=== PATIENT | male | born 1985 | race Caucasian/White ===

== ENCOUNTER 2017-02-20 14:03 | Emergency (ER) | payer MEDICAID, OTHER ==
[~2017-02-20] VITALS: Ht 180.3 cm; Wt 75.7 kg
[~2017-02-20 14:03] MED LIST: /LAMO10TA PO; GABA-282 PO; LAMI25TA PO; OMEP40CA2 PO; ZOLO50TA PO
[2017-02-20 14:04] VITALS: BP 136/80
[2017-02-20] MEDS ORDERED: METH27TA (14:09)
--- NOTE | 2017-02-20 15:20 | REP ---
RIGHT HAND, FOUR VIEWS: HISTORY: Trauma. There is no acute fracture or dislocation. The joint spaces are normal in appearance. IMPRESSION: Three is no acute fracture or dislocation. Signed by Kavon Prince MD 02/20/2017 03:27 P
--- NOTE | 2017-02-20 15:42 | REP ---
RIGHT WRIST: 02/20/2017. Comparison: Right hand today and 07/06/2016. Clinical history: Trauma. Findings: Distal radius and ulna without fracture or focal lesion. Carpal bones and joint spaces preserved without fracture, subluxation or other focal abnormality. Metacarpals and their articulations with the wrist were also normal. There is soft tissue swelling over the dorsal aspect of the hand and wrist. Impression: 1. Diffuse soft tissue swelling over the dorsal hand and wrist, but without visible or displaced fracture, definite avulsion or other acute finding. Signed by Brandon Santizo MD 02/20/2017 06:36 P
== END 2017-02-20 15:31 | disposition home or self-care (01) ==
LOC: M ED 14:03
DX: S60.221A Contusion of right hand, initial encounter (principal); W22.8XXA Striking against or struck by other objects, initial encounter; Y92.018 Other place in single-family (private) house as the place of occurrence of the external cause; Y99.9 Unspecified external cause status; Y93.9 Activity, unspecified; Z88.8 Allergy status to other drugs, medicaments and biological substances; Z91.040 Latex allergy status

== ENCOUNTER 2017-05-05 13:01 | Emergency (ER) | payer OTHER ==
[~2017-05-05] VITALS: Ht 182.9 cm; Wt 73.4 kg
[~2017-05-05 13:01] MED LIST changes: +METH27TA
[2017-05-05 13:02] VITALS: BP 152/84
[2017-05-05] MEDS ORDERED: CORT1SOL3 OT (13:56)
== END 2017-05-05 14:15 | disposition home or self-care (01) ==
LOC: M ED 13:01
DX: H60.92 Unspecified otitis externa, left ear (principal); H61.22 Impacted cerumen, left ear; H92.02 Otalgia, left ear; F41.9 Anxiety disorder, unspecified; F32.9 Major depressive disorder, single episode, unspecified; Z91.040 Latex allergy status; Z88.8 Allergy status to other drugs, medicaments and biological substances

== ENCOUNTER 2017-07-31 14:29 | Inpatient (IN) | payer OTHER ==
[2017-07-31 16:24] LABS: HEMATOCRIT 45.8 % (42.0-52.0); HEMOGLOBIN 15.7 g/dl (14.0-18.0); MEAN CORPUSCULAR HEMOGLOBIN 30.2 pg (27.0-33.0); MEAN CORPUSCULAR HGB CONC 34.3 g/dl (32.0-36.5); MEAN CORPUSCULAR VOLUME 88.1 fl (80.0-96.0); PLATELET COUNT, AUTOMATED 188 10^3/uL (150-450); RED CELL DISTRIBUTION WIDTH 13.2 % (11.5-14.5); WHITE BLOOD COUNT 6.3 10^3/uL (4.0-10.0)
[2017-07-31 16:48] LABS: AMPHETAMINES LEVEL URINE NEGATIVE (NEGATIVE); BARBITURATES URINE NEGATIVE (NEGATIVE); BENZODIAZEPINES URINE NEGATIVE (NEGATIVE); CANNABINOIDS URINE POSITIVE (NEGATIVE); COCAINE METABOLITE URINE NEGATIVE (NEGATIVE); METHADONE URINE NEGATIVE (NEGATIVE); OPIATES URINE NEGATIVE (NEGATIVE); PHENCYCLIDINE URINE NEGATIVE (NEGATIVE)
[2017-07-31 16:52] LABS: ALBUMIN 4.5 GM/DL (3.2-5.2); ALBUMIN/GLOBULIN RATIO 1.32 (1.00-1.93); ALKALINE PHOSPHATASE 94 U/L (45-117); ALT/SGPT 53 U/L (12-78); ANION GAP 6 MEQ/L (8-16); AST/SGOT 20 U/L (7-37); BILIRUBIN,DIRECT 0.2 MG/DL (0.0-0.2); BILIRUBIN,TOTAL 0.8 MG/DL (0.2-1.0); BLOOD UREA NITROGEN 10 MG/DL (7-18); CALCIUM LEVEL 9.3 MG/DL (8.5-10.1); CARBON DIOXIDE LEVEL 29 MEQ/L (21-32); CHLORIDE LEVEL 105 MEQ/L (98-107); CREATININE FOR GFR 0.91 MG/DL (0.70-1.30); GLOMERULAR FILTRATION RATE > 60.0 (>60); GLUCOSE, FASTING 88 MG/DL (70-105); POTASSIUM SERUM 4.2 MEQ/L (3.5-5.1); SALICYLATE LEVEL < 1.7 MG/DL (5.0-30.0); SODIUM LEVEL 140 MEQ/L (136-145); THYROID STIMULATING HORMONE 0.468 uIU/ML (0.358-3.740); TOTAL PROTEIN 7.9 GM/DL (6.4-8.2)
[2017-07-31 16:54] LABS: ACETAMINOPHEN LEVEL < 2.0 UG/ML (10.0-30.0); ETHYL ALCOHOL (ETHANOL) < 0.003 % (0.000-0.010)
[2017-07-31] MEDS ORDERED: MOM 30ML SUSPENSION UDC PO (19:30)
[2017-07-31] MEDS ORDERED: traZODone 50 MG TAB PO (19:30)
[2017-07-31] MEDS ORDERED: MAALOX 30 ML SUSP *UDC PO (19:30)
[2017-08-01] MEDS ORDERED: hydrOXYzine 50 MG TAB PO (14:30)
[2017-08-01] MEDS: ACETAMINOPHEN TAB 650MG DOSE (2X325MG) PO (17:32)
[2017-08-01] MEDS: guanFACINE 1 MG TAB PO (21:00)
[2017-08-01] MEDS: QUEtiapine FUMARATE 100 MG TAB PO (21:00)
[2017-08-02] MEDS: QUEtiapine FUMARATE 50 MG TAB PO (08:54)
[2017-08-02] MEDS: busPIRone 5 MG TAB PO ×3 (09:59→21:44)
[2017-08-02] MEDS: guanFACINE 1 MG TAB PO (21:44)
[2017-08-02] MEDS: QUEtiapine FUMARATE 100 MG TAB PO (21:44)
[2017-08-03] MEDS: QUEtiapine FUMARATE 50 MG TAB PO (08:55)
[2017-08-03] MEDS: busPIRone 5 MG TAB PO ×3 (08:55→22:00)
[2017-08-03] MEDS: QUEtiapine FUMARATE 100 MG TAB PO (21:59)
[2017-08-03] MEDS: guanFACINE 1 MG TAB PO (21:59)
[2017-08-04] MEDS: QUEtiapine FUMARATE 50 MG TAB PO (09:21)
[2017-08-04] MEDS: busPIRone 5 MG TAB PO (09:21)
== END 2017-08-04 13:05 | disposition home or self-care (01) | DRG 756 ==
LOC: M ED 14:29 → M ED INP 19:24 → M PSY 22:30
DX: F41.1 Generalized anxiety disorder (principal); R45.851 Suicidal ideations; F12.90 Cannabis use, unspecified, uncomplicated; F43.10 Post-traumatic stress disorder, unspecified; Z91.040 Latex allergy status; Z88.8 Allergy status to other drugs, medicaments and biological substances; M54.5 Low back pain; G47.00 Insomnia, unspecified; G43.909 Migraine, unspecified, not intractable, without status migrainosus

== ENCOUNTER 2018-01-11 14:39 | Emergency (ER) | payer OTHER ==
[2018-01-11] MEDS: IPRATROPIUM 0.5MG/ALBUTEROL 2.5MG INH SOL UD 3ML (DUONEB)(J7620) NEB (15:36)
[2018-01-11 15:44] LABS: BASO % 0.4 % (0.0-1.0); EOS % 0.4 % (0.0-3.0); HEMATOCRIT 41.8 % (42.0-52.0); IMMATURE GRANULOCYTE % 0.2 % (0-3.0); LYMPH # 2.4 10^3/uL (1.5-4.5); MEAN CORPUSCULAR HEMOGLOBIN 30.2 pg (27.0-33.0); MEAN CORPUSCULAR HGB CONC 35.9 g/dl (32.0-36.5); MEAN CORPUSCULAR VOLUME 84.1 fl (80.0-96.0); MONO # 0.7 10^3/uL (0.0-0.8); MONO % 13.2 % (0.0-5.0); NEUTROPHILS # 2.4 10^3/uL (1.8-7.7); NEUTROPHILS % 42.8 % (36.0-66.0); PLATELET COUNT, AUTOMATED 266 10^3/uL (150-450); RED BLOOD COUNT 4.97 10^6/uL (4.30-6.10); RED CELL DISTRIBUTION WIDTH 12.2 % (11.5-14.5); WHITE BLOOD COUNT 5.6 10^3/uL (4.0-10.0)
[2018-01-11 16:00] LABS: D-DIMER QUANT < 270.0 ng/ml (<500)
[2018-01-11 16:08] LABS: ANION GAP 10 MEQ/L (8-16); BLOOD UREA NITROGEN 12 MG/DL (7-18); CALCIUM LEVEL 9.2 MG/DL (8.5-10.1); CARBON DIOXIDE LEVEL 27 MEQ/L (21-32); CHLORIDE LEVEL 105 MEQ/L (98-107); CREATININE FOR GFR 1.24 MG/DL (0.70-1.30); GLOMERULAR FILTRATION RATE > 60.0 (>60); GLUCOSE, FASTING 90 MG/DL (70-100); SODIUM LEVEL 142 MEQ/L (136-145)
== END 2018-01-11 17:50 | disposition home or self-care (01) ==
LOC: M ED 14:39
DX: M25.561 Pain in right knee (principal); G89.29 Other chronic pain; J98.01 Acute bronchospasm; E88.01 Alpha-1-antitrypsin deficiency; K21.9 Gastro-esophageal reflux disease without esophagitis; F41.9 Anxiety disorder, unspecified; F31.9 Bipolar disorder, unspecified; F90.9 Attention-deficit hyperactivity disorder, unspecified type; Z79.899 Other long term (current) drug therapy; Z88.8 Allergy status to other drugs, medicaments and biological substances; Z91.040 Latex allergy status; Z87.891 Personal history of nicotine dependence; Z86.69 Personal history of other diseases of the nervous system and sense organs
CPT/HCPCS: 71046

== ENCOUNTER 2018-02-20 16:33 | Emergency (ER) | payer MEDICAID ==
[2018-02-20 19:19] LABS: HEMATOCRIT 40.2 % (42.0-52.0); MEAN CORPUSCULAR HEMOGLOBIN 30.6 pg (27.0-33.0); MEAN CORPUSCULAR HGB CONC 34.8 g/dl (32.0-36.5); MEAN CORPUSCULAR VOLUME 87.8 fl (80.0-96.0); PLATELET COUNT, AUTOMATED 184 10^3/uL (150-450); RED BLOOD COUNT 4.58 10^6/uL (4.30-6.10); RED CELL DISTRIBUTION WIDTH 12.9 % (11.5-14.5); WHITE BLOOD COUNT 10.7 10^3/uL (4.0-10.0)
[2018-02-20] MEDS: LORazepam 1 MG TAB PO (19:35)
[2018-02-20 19:45] LABS: AMPHETAMINES LEVEL URINE NEGATIVE (NEGATIVE); BARBITURATES URINE NEGATIVE (NEGATIVE); BENZODIAZEPINES URINE NEGATIVE (NEGATIVE); CANNABINOIDS URINE NEGATIVE (NEGATIVE); COCAINE METABOLITE URINE NEGATIVE (NEGATIVE); METHADONE URINE NEGATIVE (NEGATIVE); OPIATES URINE NEGATIVE (NEGATIVE); PHENCYCLIDINE URINE NEGATIVE (NEGATIVE)
[2018-02-20 19:52] LABS: ALBUMIN/GLOBULIN RATIO 1.18 (1.00-1.93); ALKALINE PHOSPHATASE 98 U/L (45-117); ALT/SGPT 72 U/L (12-78); ANION GAP 8 MEQ/L (8-16); AST/SGOT 23 U/L (7-37); BILIRUBIN,DIRECT 0.1 MG/DL (0.0-0.2); BILIRUBIN,TOTAL 0.3 MG/DL (0.2-1.0); BLOOD UREA NITROGEN 13 MG/DL (7-18); CALCIUM LEVEL 9.2 MG/DL (8.5-10.1); CARBON DIOXIDE LEVEL 28 MEQ/L (21-32); CHLORIDE LEVEL 105 MEQ/L (98-107); CREATININE FOR GFR 1.09 MG/DL (0.70-1.30); ETHYL ALCOHOL (ETHANOL) < 0.003 % (0.000-0.010); GLOMERULAR FILTRATION RATE > 60.0 (>60); GLUCOSE, FASTING 147 MG/DL (70-100); SALICYLATE LEVEL < 1.7 MG/DL (5.0-30.0); SODIUM LEVEL 141 MEQ/L (136-145); THYROID STIMULATING HORMONE 0.849 uIU/ML (0.358-3.740); TOTAL PROTEIN 7.4 GM/DL (6.4-8.2)
[2018-02-20 19:53] LABS: ACETAMINOPHEN LEVEL < 2.0 UG/ML (10.0-30.0)
== END 2018-02-20 20:37 | disposition home or self-care (01) ==
LOC: M ED 16:33
DX: F41.1 Generalized anxiety disorder (principal); F43.10 Post-traumatic stress disorder, unspecified; F19.10 Other psychoactive substance abuse, uncomplicated; J45.909 Unspecified asthma, uncomplicated; Z88.8 Allergy status to other drugs, medicaments and biological substances; Z91.040 Latex allergy status; Z79.899 Other long term (current) drug therapy; Z79.1 Long term (current) use of non-steroidal anti-inflammatories (NSAID)
CPT/HCPCS: 80320

== ENCOUNTER 2018-10-19 13:36 | Emergency (ER) | payer MEDICAID, OTHER ==
[~2018-10-19] VITALS: Ht 185.4 cm; Wt 68.2 kg
[~2018-10-19 13:36] MED LIST changes: -/LAMO10TA PO; +ALBU83IN INH; +BACI500O8 TOP; +BACI50OI TOP; +BUPR150T3 PO; +BUSP5TA PO; +CORT1SOL3 OT; -GABA-282 PO; +GABA-843 PO; +GUAN1TA PO; +IBUP-354 PO; +LAMI1TAB7 PO; +MINI1CAP PO; +NAPR-837 PO; +NAPR-885 PO; +PRAZ1CAP PO; +PRED20TA PO; +QUET1TAB8 PO; +QUET5TAB PO; +SERO1TAB PO; +SERO50TA PO; +SERT-141 PO
[2018-10-19 14:24] LABS: BASO % 0.3 % (0.0-1.0); EOS # 0.1 10^3/uL (0.0-0.50); EOS % 1.4 % (0.0-3.0); HEMATOCRIT 46.6 % (42.0-52.0); HEMOGLOBIN 16.1 g/dl (13.5-17.5); LYMPH # 2.1 10^3/uL (1.5-4.5); LYMPH % 30.1 % (24.0-44.0); MEAN CORPUSCULAR HEMOGLOBIN 30.4 pg (27.0-33.0); MEAN CORPUSCULAR HGB CONC 34.5 g/dl (32.0-36.5); MEAN CORPUSCULAR VOLUME 87.9 fl (80.0-96.0); MONO # 0.9 10^3/uL (0.0-0.8); MONO % 12.1 % (0.0-5.0); NEUTROPHILS # 3.9 10^3/uL (1.8-7.7); PLATELET COUNT, AUTOMATED 206 10^3/uL (150-450)
[2018-10-19] MEDS ORDERED: KETOROLAC 30 MG/ML VIAL (J1885) IV ONE (14:30)
[2018-10-19] MEDS ORDERED: ONDANSETRON 4MG/2ML VIAL (J2405) IV ONE (14:30)
[2018-10-19 14:41] LABS: ALBUMIN 4.1 GM/DL (3.2-5.2); ALT/SGPT 391 U/L (12-78); BILIRUBIN,DIRECT 0.2 MG/DL (0.0-0.2); BILIRUBIN,TOTAL 0.6 MG/DL (0.2-1.0); BLOOD UREA NITROGEN 13 MG/DL (7-18); CALCIUM LEVEL 8.9 MG/DL (8.5-10.1); CARBON DIOXIDE LEVEL 29 MEQ/L (21-32); CHLORIDE LEVEL 104 MEQ/L (98-107); CREATININE FOR GFR 0.99 MG/DL (0.70-1.30); GLOMERULAR FILTRATION RATE > 60.0 (>60); GLUCOSE, FASTING 109 MG/DL (70-100); LIPASE 113 U/L (73-393); POTASSIUM SERUM 4.1 MEQ/L (3.5-5.1); SODIUM LEVEL 138 MEQ/L (136-145); TOTAL PROTEIN 8.1 GM/DL (6.4-8.2)
[2018-10-19] MEDS: GASTROGRAFIN SOLUTION 30ML PO SCH ×2 (15:08→15:45)
[2018-10-19 15:29] LABS: HEPATITIS B SURFACE ANTIGEN NEGATIVE (NEGATIVE)
[2018-10-19 15:57] LABS: HEPATITIS B CORE ANTIBODY IGM NEGATIVE (NEGATIVE)
[2018-10-19 15:59] LABS: HEPATITIS A ANTIBODY IGM NEGATIVE (NEGATIVE)
[2018-10-19 16:05] LABS: HEPATITIS C VIRUS ABY INDEX > 11.0 INDEX (<0.8)
[2018-10-19] MEDS ORDERED: ISOVUE-370 76% 100ML VIAL (Q9967) As Ordered ONE (16:33)
--- NOTE | 2018-10-19 17:22 | REP ---
Clinical: Right lower quadrant pain. Technique: Axial contrast enhanced images from the lung bases to the pubic symphysis using oral and 100 ml Isovue 370 intravenous contrast material with precontrast images of the abdomen as well as coronal and sagittal re-formations. Findings: The liver, spleen, pancreas, gallbladder, bilateral adrenal glands and kidneys are normal. Specifically, no perinephric stranding, hydroureteronephrosis, intrarenal or obstructing ureteral calculi are identified. Evaluation of the enteric system is without obstruction or acute inflammatory process. A relatively normal appendix is identified in the right lower quadrant with with a 3 mm appendicolith at the tip but without surrounding inflammatory stranding to suggest acute appendicitis. Evaluation of the pelvis demonstrates normal bladder and age appropriate prostate/seminal vesicles. No pelvic fluid or ascites. No free air. No adenopathy. Abdominal aorta and vasculature without aneurysm or dissection. Musculoskeletal structures are intact. Impression: 1. No acute abdominopelvic pathology appreciated. 2. Relatively normal appendix as described above without surrounding inflammatory changes to suggest acute appendicitis. 3. Normal appearance to the urinary tract system. Electronically Signed by Estrada Quezada MD 10/19/2018 05:13 P
[2018-10-19 18:14] VITALS: BP 121/69
== END 2018-10-19 18:17 | disposition home or self-care (01) ==
LOC: M ED 13:36
DX: K38.8 Other specified diseases of appendix (principal); B19.20 Unspecified viral hepatitis C without hepatic coma; K21.9 Gastro-esophageal reflux disease without esophagitis; G43.909 Migraine, unspecified, not intractable, without status migrainosus; J45.909 Unspecified asthma, uncomplicated; M54.9 Dorsalgia, unspecified; F43.10 Post-traumatic stress disorder, unspecified; F41.9 Anxiety disorder, unspecified; Z88.8 Allergy status to other drugs, medicaments and biological substances; Z91.040 Latex allergy status
CPT/HCPCS: 36415; 74178; 80048; 80076; 81001; 83690; 85025; 86705; 86709; 86803; 87340; 87521; 96374; 96375; 99284; J1885; J2405; Q9963; Q9967

== ENCOUNTER 2018-11-19 09:32 | Emergency (ER) | payer OTHER ==
[~2018-11-19] VITALS: Ht 185.4 cm; Wt 68.2 kg
[2018-11-19] MEDS ORDERED: ONDANSETRON 4MG/2ML VIAL (J2405) IV ONE (10:15)
[2018-11-19] MEDS ORDERED: KETOROLAC 30 MG/ML VIAL (J1885) IV ONE (10:15)
[2018-11-19] MEDS ORDERED: NS 1,000 ML IV ONE (10:15)
[2018-11-19 10:39] LABS: BASO % 0.4 % (0.0-1.0); EOS # 0.1 10^3/uL (0.0-0.50); EOS % 1.5 % (0.0-3.0); HEMATOCRIT 44.5 % (42.0-52.0); HEMOGLOBIN 15.1 g/dl (13.5-17.5); LYMPH # 1.9 10^3/uL (1.5-4.5); LYMPH % 34.9 % (24.0-44.0); MEAN CORPUSCULAR HEMOGLOBIN 30.6 pg (27.0-33.0); MEAN CORPUSCULAR HGB CONC 33.9 g/dl (32.0-36.5); MEAN CORPUSCULAR VOLUME 90.1 fl (80.0-96.0); MONO # 0.6 10^3/uL (0.0-0.8); MONO % 11.4 % (0.0-5.0); NEUTROPHILS # 2.8 10^3/uL (1.8-7.7); NEUTROPHILS % 51.8 % (36.0-66.0); PLATELET COUNT, AUTOMATED 186 10^3/uL (150-450); RED BLOOD COUNT 4.94 10^6/uL (4.30-6.10); WHITE BLOOD COUNT 5.4 10^3/uL (4.0-10.0)
[2018-11-19 11:12] LABS: ALBUMIN 3.9 GM/DL (3.2-5.2); ALT/SGPT 356 U/L (12-78); AMYLASE 28 U/L (25-115); BILIRUBIN,DIRECT 0.3 MG/DL (0.0-0.2); BILIRUBIN,TOTAL 1.1 MG/DL (0.2-1.0); BLOOD UREA NITROGEN 11 MG/DL (7-18); CALCIUM LEVEL 8.9 MG/DL (8.5-10.1); CARBON DIOXIDE LEVEL 29 MEQ/L (21-32); CHLORIDE LEVEL 105 MEQ/L (98-107); CREATININE FOR GFR 1.01 MG/DL (0.70-1.30); GLOMERULAR FILTRATION RATE > 60.0 (>60); GLUCOSE, FASTING 83 MG/DL (70-100); LIPASE 76 U/L (73-393); SODIUM LEVEL 137 MEQ/L (136-145); TOTAL PROTEIN 7.8 GM/DL (6.4-8.2)
[2018-11-19] MEDS ORDERED: ISOVUE-370 76% 100ML VIAL (Q9967) As Ordered ONE (11:26)
--- NOTE | 2018-11-19 12:22 | REP ---
CT ABDOMEN AND PELVIS WITH IV CONTRAST: TECHNIQUE: Axial contrast enhanced images from the lung bases to the pubic symphysis using 100 mL Isovue 370 intravenous contrast material with multiplanar reformations. COMPARISON: 10/19/2018 Visualized lung bases are clear. The liver, gallbladder, spleen, adrenals, pancreas and kidneys are unremarkable in appearance with no abnormality detected. There is no hydronephrosis. There is no abdominal aortic aneurysm. There is no adenopathy. There is no free air or free fluid. There is no bowel wall thickening. There is no evidence of appendicitis. There is no pelvic mass. Urinary bladder is mildly distended and grossly unremarkable. IMPRESSION: No CT evidence of appendicitis. No free air or free fluid. No other acute finding. Electronically Signed by Artis Singh MD 11/20/2018 12:17 P
[2018-11-19 12:56] VITALS: BP 124/74
== END 2018-11-19 13:18 | disposition home or self-care (01) ==
LOC: M ED 09:32
DX: R10.31 Right lower quadrant pain (principal)
CPT/HCPCS: 74177; 80048; 80076; 81001; 82150; 83690; 85025; 96361; 96374; 96375; 99284; J1885; J2405; Q9967

== ENCOUNTER → 2019-05-24 | Outpatient (CLI) | payer OTHER ==
[~2019-05-24] MED LIST changes: +CLONIDINE; -METH27TA; +METH27TA5
[2019-05-24 15:16] LABS: HEMATOCRIT 45.3 % (42.0-52.0); HEMOGLOBIN 15.1 g/dl (13.5-17.5); MEAN CORPUSCULAR HEMOGLOBIN 29.9 pg (27.0-33.0); MEAN CORPUSCULAR HGB CONC 33.3 g/dl (32.0-36.5); MEAN CORPUSCULAR VOLUME 89.7 fl (80.0-96.0); PLATELET COUNT, AUTOMATED 182 10^3/uL (150-450); RED BLOOD COUNT 5.05 10^6/uL (4.30-6.10); WHITE BLOOD COUNT 6.3 10^3/uL (4.0-10.0)
[2019-05-24 15:41] LABS: ALBUMIN 4.1 GM/DL (3.2-5.2); ALT/SGPT 695 U/L (12-78); BILIRUBIN,TOTAL 0.6 MG/DL (0.2-1.0); BLOOD UREA NITROGEN 9 MG/DL (7-18); CALCIUM LEVEL 8.9 MG/DL (8.5-10.1); CARBON DIOXIDE LEVEL 27 MEQ/L (21-32); CHLORIDE LEVEL 102 MEQ/L (98-107); CREATININE FOR GFR 0.91 MG/DL (0.70-1.30); GLOMERULAR FILTRATION RATE > 60.0 (>60); GLUCOSE, FASTING 81 MG/DL (70-100); POTASSIUM SERUM 3.6 MEQ/L (3.5-5.1); SODIUM LEVEL 137 MEQ/L (136-145); TOTAL PROTEIN 7.6 GM/DL (6.4-8.2)
[2019-05-24 16:09] LABS: HEPATITIS B SURFACE ANTIGEN NEGATIVE (NEGATIVE)
[2019-05-24 16:38] LABS: HIV 1&2 SCREEN CENTAUR NEGATIVE (NEGATIVE)
[2019-05-24 16:46] LABS: HEPATITIS C VIRUS ABY INDEX > 11.0 INDEX (<0.8)
[2019-05-24 16:50] LABS: CHLAMYDIA DNA AMPLIFICATION NEGATIVE (NEGATIVE); GC DNA AMPLIFICATION NEGATIVE (NEGATIVE)
--- NOTE | 2019-05-24 21:54 | ECGEPIP ---
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
== END ==
LOC: M LAB 14:18
PROVIDERS: ATTEND Family Medicine
DX: F11.20 Opioid dependence, uncomplicated (principal)

== ENCOUNTER → 2019-05-24 | Outpatient (CLI) | payer OTHER ==
[2019-05-24 15:13] LABS: APPEARANCE, URINE CLEAR (CLEAR); BACTERIA, URINE AUTO NEGATIVE (NEGATIVE); BILIRUBIN, URINE AUTO NEGATIVE (NEGATIVE); BLOOD, URINE BLOOD NEGATIVE (NEGATIVE); COLOR, URINE YELLOW (YELLOW); GLUCOSE, URINE (UA) AUTO NEGATIVE (NEGATIVE); KETONE, URINE AUTO NEGATIVE (NEGATIVE); LEUKOCYTE ESTERASE, URINE AUTO 2+ (NEGATIVE); NITRITE, URINE AUTO NEGATIVE (NEGATIVE); PROTEIN, URINE AUTO NEGATIVE (NEGATIVE); RBC, URINE AUTO 2 /HPF (0-3); SQUAMOUS EPITHELIAL CELL UR AU 0 /HPF (0-6); UROBILINOGEN, URINE AUTO 0.2 mg/dL (0.0-2.0); WBC, URINE AUTO 28 /HPF (0-3)
[2019-05-24 15:15] LABS: BASO % 0.3 % (0.0-1.0); EOS % 0.6 % (0.0-3.0); HEMATOCRIT 44.2 % (42.0-52.0); HEMOGLOBIN 15.3 g/dl (13.5-17.5); LYMPH # 2.5 10^3/uL (1.5-5.0); LYMPH % 37.8 % (24.0-44.0); MEAN CORPUSCULAR HEMOGLOBIN 30.8 pg (27.0-33.0); MEAN CORPUSCULAR HGB CONC 34.6 g/dl (32.0-36.5); MEAN CORPUSCULAR VOLUME 89.1 fl (80.0-96.0); MONO # 0.7 10^3/uL (0.0-0.8); MONO % 11.1 % (0.0-5.0); NEUTROPHILS # 3.2 10^3/uL (1.5-8.5); NEUTROPHILS % 49.9 % (36.0-66.0); PLATELET COUNT, AUTOMATED 182 10^3/uL (150-450); RED BLOOD COUNT 4.96 10^6/uL (4.30-6.10); WHITE BLOOD COUNT 6.5 10^3/uL (4.0-10.0)
[2019-05-24 15:37] LABS: ALBUMIN 4.1 GM/DL (3.2-5.2); ALT/SGPT 703 U/L (12-78); BILIRUBIN,TOTAL 0.6 MG/DL (0.2-1.0); BLOOD UREA NITROGEN 10 MG/DL (7-18); CALCIUM LEVEL 9.2 MG/DL (8.5-10.1); CARBON DIOXIDE LEVEL 28 MEQ/L (21-32); CHLORIDE LEVEL 104 MEQ/L (98-107); CREATININE FOR GFR 0.94 MG/DL (0.70-1.30); GLOMERULAR FILTRATION RATE > 60.0 (>60); GLUCOSE, FASTING 81 MG/DL (70-100); POTASSIUM SERUM 3.7 MEQ/L (3.5-5.1); SODIUM LEVEL 140 MEQ/L (136-145); TOTAL PROTEIN 7.9 GM/DL (6.4-8.2)
[2019-05-24 15:45] LABS: HEPATITIS B SURFACE ANTIBODY POSITIVE (POSITIVE)
[2019-05-24 15:55] LABS: HEPATITIS B SURFACE ANTIGEN NEGATIVE (NEGATIVE)
[2019-05-28 00:07] LABS: HEPATITIS A IgG TOTAL Negative (Negative); HEPATITIS C QUANTITATION 482500 IU/mL (.); HEPATITIS C VIRUS GENOTYPE 1b (.)
== END ==
LOC: M LAB 14:13
PROVIDERS: ATTEND Physician Assistant Medical
DX: Z02.2 Encounter for examination for admission to residential institution (principal); B18.2 Chronic viral hepatitis C; B16.9 Acute hepatitis B without delta-agent and without hepatic coma; B15.9 Hepatitis A without hepatic coma

== ENCOUNTER 2019-05-25 14:31 | Emergency (ER) | payer OTHER ==
[~2019-05-25] VITALS: Ht 185.4 cm; Wt 82.8 kg
[~2019-05-25 14:31] MED LIST changes: -CLONIDINE
[2019-05-25] MEDS ORDERED: CLONIDINE (14:36)
[2019-05-25 17:03] VITALS: BP 126/75
== END 2019-05-25 17:05 | disposition home or self-care (01) ==
LOC: M ED 14:31
DX: F32.9 Major depressive disorder, single episode, unspecified (principal); F41.9 Anxiety disorder, unspecified; F43.10 Post-traumatic stress disorder, unspecified; F90.9 Attention-deficit hyperactivity disorder, unspecified type; Z91.040 Latex allergy status; E88.01 Alpha-1-antitrypsin deficiency; Z88.8 Allergy status to other drugs, medicaments and biological substances

== ENCOUNTER → 2019-06-02 | Outpatient (CLI) | payer OTHER ==
[~2019-06-02] MED LIST changes: +CLONIDINE
[2019-06-02 15:21] LABS: HEMATOCRIT 39.5 % (42.0-52.0); HEMOGLOBIN 13.3 g/dl (13.5-17.5); MEAN CORPUSCULAR HEMOGLOBIN 30.2 pg (27.0-33.0); MEAN CORPUSCULAR HGB CONC 33.7 g/dl (32.0-36.5); MEAN CORPUSCULAR VOLUME 89.6 fl (80.0-96.0); PLATELET COUNT, AUTOMATED 232 10^3/uL (150-450); RED BLOOD COUNT 4.41 10^6/uL (4.30-6.10); WHITE BLOOD COUNT 10.3 10^3/uL (4.0-10.0)
[2019-06-02 15:44] LABS: ALBUMIN 3.5 GM/DL (3.2-5.2); ALT/SGPT 173 U/L (12-78); BILIRUBIN,TOTAL 1.1 MG/DL (0.2-1.0); BLOOD UREA NITROGEN 14 MG/DL (7-18); CALCIUM LEVEL 8.7 MG/DL (8.5-10.1); CARBON DIOXIDE LEVEL 32 MEQ/L (21-32); CHLORIDE LEVEL 99 MEQ/L (98-107); CREATININE FOR GFR 1.02 MG/DL (0.70-1.30); GLOMERULAR FILTRATION RATE > 60.0 (>60); GLUCOSE, FASTING 85 MG/DL (70-100); POTASSIUM SERUM 4.1 MEQ/L (3.5-5.1); SODIUM LEVEL 136 MEQ/L (136-145); TOTAL PROTEIN 7.4 GM/DL (6.4-8.2)
== END ==
LOC: M LAB 14:28
PROVIDERS: ATTEND Nurse Practitioner Psychiatric/Mental Health
DX: R76.9 Abnormal immunological finding in serum, unspecified (principal)

== ENCOUNTER 2019-07-20 12:54 | Emergency (ER) | payer OTHER ==
[~2019-07-20] VITALS: Ht 185.4 cm; Wt 84.5 kg
[2019-07-20] MEDS ORDERED: PRAZ1CAP (12:59)
[2019-07-20] MEDS ORDERED: SOFO1TAB (12:59)
[2019-07-20] MEDS ORDERED: ARIP1TAB10 (12:59)
[2019-07-20] MEDS ORDERED: MIRT1TAB15 (12:59)
[2019-07-20 13:25] LABS: BASO % 0.5 % (0.0-1.0); EOS % 0.2 % (0.0-3.0); HEMATOCRIT 48.1 % (42.0-52.0); HEMOGLOBIN 16.3 g/dl (13.5-17.5); LYMPH # 1.5 10^3/uL (1.5-5.0); LYMPH % 17.2 % (24.0-44.0); MEAN CORPUSCULAR HEMOGLOBIN 29.4 pg (27.0-33.0); MEAN CORPUSCULAR HGB CONC 33.9 g/dl (32.0-36.5); MEAN CORPUSCULAR VOLUME 86.8 fl (80.0-96.0); MONO # 0.9 10^3/uL (0.0-0.8); MONO % 10.9 % (0.0-5.0); NEUTROPHILS # 6.1 10^3/uL (1.5-8.5); PLATELET COUNT, AUTOMATED 178 10^3/uL (150-450); RED BLOOD COUNT 5.54 10^6/uL (4.30-6.10); WHITE BLOOD COUNT 8.6 10^3/uL (4.0-10.0)
[2019-07-20 13:44] LABS: ALT/SGPT 38 U/L (12-78); BLOOD UREA NITROGEN 15 MG/DL (7-18); CARBON DIOXIDE LEVEL 24 MEQ/L (21-32); CHLORIDE LEVEL 106 MEQ/L (98-107); CREATININE FOR GFR 1.09 MG/DL (0.70-1.30); GLOMERULAR FILTRATION RATE > 60.0 (>60); GLUCOSE, FASTING 100 MG/DL (70-100); SODIUM LEVEL 138 MEQ/L (136-145)
[2019-07-20 13:45] LABS: ALBUMIN 3.8 GM/DL (3.2-5.2); BILIRUBIN,DIRECT 0.2 MG/DL (0.0-0.2); BILIRUBIN,TOTAL 0.6 MG/DL (0.2-1.0); LIPASE 76 U/L (73-393); TOTAL PROTEIN 7.7 GM/DL (6.4-8.2)
[2019-07-20] MEDS ORDERED: ONDANSETRON 4 MG ORAL DISINTEGRATING TAB (Q0162 PER 1MG) PO ONE (15:15)
[2019-07-20] MEDS ORDERED: FAMOTIDINE 20 MG TAB PO ONE (15:15)
[2019-07-20 16:04] VITALS: BP 122/69
[2019-07-20] MEDS ORDERED: ONDA4TAB6 PO (16:23)
[2019-07-20] MEDS ORDERED: PEPC1TAB5 PO (16:23)
== END 2019-07-20 16:41 | disposition home or self-care (01) ==
LOC: M ED 12:54
DX: R10.9 Unspecified abdominal pain (principal); R19.7 Diarrhea, unspecified; K21.9 Gastro-esophageal reflux disease without esophagitis; F17.210 Nicotine dependence, cigarettes, uncomplicated; Z88.1 Allergy status to other antibiotic agents; Z91.09 Other allergy status, other than to drugs and biological substances; Z91.040 Latex allergy status; Z79.83 Long term (current) use of bisphosphonates; Z79.899 Other long term (current) drug therapy
CPT/HCPCS: 36415; 80048; 80076; 81001; 83690; 85025; 87086; 99283; Q0162

== ENCOUNTER 2020-10-27 11:55 | Emergency (ER) | payer MEDICAID, OTHER ==
[~2020-10-27] VITALS: Ht 185.4 cm; Wt 79.2 kg
[~2020-10-27 11:55] MED LIST changes: +ARIP1TAB10; +BUPR150T12 PO; -BUPR150T3 PO; +GABA-282 PO; -GABA-843 PO; +MIRT1TAB15; +ONDA4TAB6 PO; +PEPC1TAB5 PO; +PRAZ1CAP; +QUET100T2 PO; -QUET1TAB8 PO; +QUET50TA3 PO; -QUET5TAB PO; +SOFO1TAB
[2020-10-27] MEDS ORDERED: KETOROLAC TROMETHAMINE 10 MG TAB PO ONE (12:35)
--- NOTE | 2020-10-27 12:36 | REP ---
INDICATION: pain after fall, swelling COMPARISON: 02/20/2017. TECHNIQUE: Four views right wrist. FINDINGS: There is no evidence of acute fracture, dislocation, or intrinsic bone disease. IMPRESSION: No fracture or dislocation. <Electronically signed by Artis Singh > 10/27/20 1435
--- NOTE | 2020-10-27 12:37 | REP ---
INDICATION: pain after fall, swelling COMPARISON: None. TECHNIQUE: Four views right elbow. FINDINGS: There is nondisplaced fracture of the head of the radius which is intra-articular. There is no other evidence of acute fracture or dislocation. IMPRESSION: Intra-articular fracture head of radius. <Electronically signed by Artis Singh > 10/27/20 [id number]
[2020-10-27 13:31] VITALS: BP 130/78
== END 2020-10-27 13:32 | disposition home or self-care (01) ==
LOC: M ED 11:55
DX: S52.124A Nondisplaced fracture of head of right radius, initial encounter for closed fracture (principal); V00.181A Fall from other rolling-type pedestrian conveyance, initial encounter; Y92.9 Unspecified place or not applicable; Y93.9 Activity, unspecified; Y99.9 Unspecified external cause status; K21.9 Gastro-esophageal reflux disease without esophagitis; B18.2 Chronic viral hepatitis C; J43.9 Emphysema, unspecified; Z91.040 Latex allergy status; Z88.8 Allergy status to other drugs, medicaments and biological substances

== ENCOUNTER → 2020-10-30 | Outpatient (CLI) | payer MEDICAID ==
--- NOTE | 2020-10-31 10:08 | REP ---
INDICATION: F/U FX. COMPARISON: 10/27/2020 TECHNIQUE: AP, lateral, oblique views of the right elbow FINDINGS: Nondisplaced intra-articular fracture of the radial head again noted. Elevation to the anterior fat pad and joint effusion appreciated. IMPRESSION: Continued evidence for nondisplaced intra-articular radial head fracture and overlying soft tissue swelling <Electronically signed by Estrada Quezada > 10/31/20 1004
== END ==
LOC: M SOG 13:22
PROVIDERS: ATTEND Orthopaedic Surgery Sports Medicine
DX: S52.124D Nondisplaced fracture of head of right radius, subsequent encounter for closed fracture with routine healing (principal); X58.XXXA Exposure to other specified factors, initial encounter; Y92.9 Unspecified place or not applicable; Y93.9 Activity, unspecified; Y99.9 Unspecified external cause status

== ENCOUNTER → 2020-11-08 | Outpatient (CLI) | payer MEDICAID ==
--- NOTE | 2020-11-08 15:34 | REP ---
INDICATION: F/U FX. COMPARISON: 10/30/2020 TECHNIQUE: AP, lateral, bilateral oblique views of the right elbow. FINDINGS: Lateral view again demonstrates elevation to the fat pad. Intra-articular radial head fracture appears to be healing. IMPRESSION: Healing radial head fracture. <Electronically signed by Estrada Quezada > 11/08/20 1496
--- NOTE | 2020-11-08 15:36 | REP ---
INDICATION: F/U FX. COMPARISON: 10/27/2020 TECHNIQUE: Three views of the right wrist FINDINGS: No fracture or dislocation. Carpal bones, joint spaces and surrounding soft tissues are normal. IMPRESSION: No fracture or dislocation appreciated <Electronically signed by Estrada Quezada > 11/08/20 1536
== END ==
LOC: M SOG 15:01 → M MS5PR 16:35 → M SOG 16:35
PROVIDERS: ATTEND Orthopaedic Surgery Adult Reconstructive Orthopaedic Surgery
DX: S52.124A Nondisplaced fracture of head of right radius, initial encounter for closed fracture (principal); M25.531 Pain in right wrist; X58.XXXA Exposure to other specified factors, initial encounter; Y92.89 Other specified places as the place of occurrence of the external cause; Y93.9 Activity, unspecified; Y99.9 Unspecified external cause status

== ENCOUNTER → 2020-12-06 | Outpatient (CLI) | payer MEDICAID ==
--- NOTE | 2020-12-06 15:26 | REP ---
INDICATION: F/U. COMPARISON: 11/08/2020. TECHNIQUE: Four views right elbow. FINDINGS: The intra-articular radial head fracture is again noted, unchanged in position, nondisplaced. IMPRESSION: Stable nondisplaced fracture radial head. <Electronically signed by Artis Singh > 12/06/20 1523
== END ==
LOC: M SOG 13:55
PROVIDERS: ATTEND Orthopaedic Surgery Adult Reconstructive Orthopaedic Surgery
DX: S52.124D Nondisplaced fracture of head of right radius, subsequent encounter for closed fracture with routine healing (principal); W18.30XD Fall on same level, unspecified, subsequent encounter; Y92.009 Unspecified place in unspecified non-institutional (private) residence as the place of occurrence of the external cause

== ENCOUNTER 2022-03-18 11:00 | Outpatient (RCR) | payer OTHER | END 2022-03-20 | LOC: M OUTALCOH 11:00 | PROVIDERS: ATTEND Psychiatry & Neurology Psychiatry | DX: F16.20 Hallucinogen dependence, uncomplicated (principal); F12.20 Cannabis dependence, uncomplicated; F15.20 Other stimulant dependence, uncomplicated ==

== ENCOUNTER → 2022-03-18 | Outpatient (CLI) | payer OTHER ==
[~2022-03-18] MED LIST changes: +ALBU2.5V10 INH; -ALBU83IN INH; -QUET50TA3 PO; +QUET50TA4 PO
== END ==
LOC: M OUTALCOH 10:03
PROVIDERS: ATTEND Psychiatry & Neurology Psychiatry
DX: F10.10 Alcohol abuse, uncomplicated (principal)

== ENCOUNTER → 2022-05-08 | Outpatient (CLI) | payer OTHER | LOC: M OUTALCOH 07:49 | PROVIDERS: ATTEND Psychiatry & Neurology Psychiatry | DX: F19.90 Other psychoactive substance use, unspecified, uncomplicated (principal) ==

== ENCOUNTER 2022-05-17 12:59 | Outpatient (RCR) | payer OTHER | END 2022-05-20 | LOC: M OUTALCOH 12:59 | PROVIDERS: ATTEND Psychiatry & Neurology Psychiatry | DX: F16.20 Hallucinogen dependence, uncomplicated (principal); F12.20 Cannabis dependence, uncomplicated; F15.20 Other stimulant dependence, uncomplicated ==

== ENCOUNTER → 2022-06-19 | Outpatient (RCR) | payer OTHER | LOC: M OUTALCOH 05-24 12:45 | PROVIDERS: ATTEND Psychiatry & Neurology Psychiatry | DX: F16.20 Hallucinogen dependence, uncomplicated (principal); F12.20 Cannabis dependence, uncomplicated; F15.20 Other stimulant dependence, uncomplicated ==

== ENCOUNTER 2022-09-04 18:22 | Emergency (ER) | payer OTHER ==
[~2022-09-04] VITALS: Ht 185.4 cm; Wt 75.1 kg
[2022-09-04 19:53] LABS: HEMATOCRIT 41.6 % (42.0-52.0); HEMOGLOBIN 14.4 g/dl (13.5-17.5); MEAN CORPUSCULAR HEMOGLOBIN 30.4 pg (27.0-33.0); MEAN CORPUSCULAR HGB CONC 34.6 g/dl (32.0-36.5); MEAN CORPUSCULAR VOLUME 87.8 fl (80.0-96.0); PLATELET COUNT, AUTOMATED 168 10^3/uL (150-450); RED BLOOD COUNT 4.74 10^6/uL (4.30-6.10); WHITE BLOOD COUNT 7.6 10^3/uL (4.0-10.0)
[2022-09-04 20:18] LABS: ETHYL ALCOHOL (ETHANOL) < 0.003 % (0.000-0.010)
[2022-09-04 20:20] LABS: ACETAMINOPHEN LEVEL < 2.0 UG/ML (10.0-20.0); SALICYLATE LEVEL < 3.0 MG/DL (<30)
[2022-09-04 20:49] LABS: ALBUMIN 3.8 G/DL (3.2-5.2); ALKALINE PHOSPHATASE 87 U/L (46-116); ALT/SGPT 130 U/L (7.0-40); AST/SGOT 51 U/L (<34); BILIRUBIN,DIRECT 0.2 MG/DL (<0.4); BILIRUBIN,TOTAL 0.5 MG/DL (0.3-1.2); BLOOD UREA NITROGEN 20 MG/DL (9-23); CALCIUM LEVEL 9.3 MG/DL (8.5-10.1); CARBON DIOXIDE LEVEL 28 MMOL/L (20-31); CHLORIDE LEVEL 106 MMOL/L (98-107); CREATININE FOR GFR 0.94 MG/DL (0.70-1.30); GLOMERULAR FILTRATION RATE > 60.0 (>60); GLUCOSE, FASTING 117 MG/DL (60-100); SODIUM LEVEL 139 MMOL/L (136-145); THYROID STIMULATING HORMONE 0.743 uIU/ML (0.55-4.78); TOTAL PROTEIN 6.8 G/DL (5.7-8.2)
[2022-09-04 23:10] LABS: AMPHETAMINES LEVEL URINE NEGATIVE (NEGATIVE); BARBITURATES URINE NEGATIVE (NEGATIVE); BENZODIAZEPINES URINE NEGATIVE (NEGATIVE); COCAINE METABOLITE URINE NEGATIVE (NEGATIVE); METHADONE URINE NEGATIVE (NEGATIVE); OPIATES URINE NEGATIVE (NEGATIVE); PHENCYCLIDINE URINE NEGATIVE (NEGATIVE)
[2022-09-04 23:13] LABS: CANNABINOIDS URINE POSITIVE (NEGATIVE)
[2022-09-04 23:24] VITALS: BP 142/68
[2022-09-05] MEDS ORDERED: HYDR-4570 PO (01:48)
== END 2022-09-05 01:59 | disposition home or self-care (01) ==
LOC: M ED 18:22
DX: Z04.6 Encounter for general psychiatric examination, requested by authority (principal); F51.01 Primary insomnia; R45.851 Suicidal ideations; F43.10 Post-traumatic stress disorder, unspecified; F12.10 Cannabis abuse, uncomplicated; Z88.5 Allergy status to narcotic agent; Z88.8 Allergy status to other drugs, medicaments and biological substances; Z91.040 Latex allergy status; Z79.83 Long term (current) use of bisphosphonates; Z79.899 Other long term (current) drug therapy

== ENCOUNTER 2024-05-20 19:05 | Emergency (ER) | payer OTHER, SELFPAY ==
[~2024-05-20] VITALS: Ht 185.4 cm; Wt 68.2 kg
[~2024-05-20 19:05] MED LIST changes: +GABA-1172 PO; -GABA-282 PO; +HYDR-4570 PO; +ONDA-282 PO; -ONDA4TAB6 PO
[2024-05-20 22:02] LABS: BASO % 0.6 % (0.0-1.0); EOS # 0.1 10^3/uL (0.0-0.5); EOS % 1.8 % (0.0-3.0); HEMATOCRIT 42.5 % (42.0-52.0); LYMPH # 2.9 10^3/uL (1.5-5.0); LYMPH % 41.5 % (24.0-44.0); MEAN CORPUSCULAR HEMOGLOBIN 27.9 pg (27.0-33.0); MEAN CORPUSCULAR HGB CONC 32.9 g/dl (32.0-36.5); MEAN CORPUSCULAR VOLUME 84.7 fl (80.0-96.0); MONO # 0.9 10^3/uL (0.0-0.8); NEUTROPHILS # 3.1 10^3/uL (1.5-8.5); PLATELET COUNT, AUTOMATED 181 10^3/uL (150-450); RED BLOOD COUNT 5.02 10^6/uL (4.30-6.10); WHITE BLOOD COUNT 7.1 10^3/uL (4.0-10.0)
[2024-05-20] MEDS: ONDANSETRON 4MG 2ML VIAL IV ONE (22:11)
[2024-05-20] MEDS: KETOROLAC 30 MG/ML 1ML VIAL IV ONE (22:12)
[2024-05-20 22:26] LABS: LIPASE 32 U/L (12-53)
[2024-05-20 22:27] LABS: AMYLASE 40 U/L (30-118)
[2024-05-20 22:28] LABS: ALKALINE PHOSPHATASE 93 U/L (40-129); ALT/SGPT 243 U/L (7.0-40); AST/SGOT 141 U/L (<34); BILIRUBIN,DIRECT 0.4 MG/DL (<0.4); BILIRUBIN,TOTAL 0.9 MG/DL (0.3-1.2); BLOOD UREA NITROGEN 18 MG/DL (9-23); CALCIUM LEVEL 9.8 MG/DL (8.5-10.1); CARBON DIOXIDE LEVEL 28 MMOL/L (20-31); CHLORIDE LEVEL 109 MMOL/L (98-107); CREATININE FOR GFR 0.99 MG/DL (0.70-1.30); GLOMERULAR FILTRATION RATE > 60.0 (>60); GLUCOSE, FASTING 89 MG/DL (60-100); SODIUM LEVEL 141 MMOL/L (136-145); TOTAL PROTEIN 7.4 G/DL (5.7-8.2)
[2024-05-20] MEDS ORDERED: ISOVUE-370 76% 100ML VIAL As Ordered ONE (23:37)
[2024-05-21 01:00] VITALS: BP 121/77; TEMP 97.4; O2SAT 97
== END 2024-05-21 01:15 | disposition home or self-care (01) ==
LOC: M ED 19:05
DX: K38.1 Appendicular concretions (principal); R74.01 Elevation of levels of liver transaminase levels; J45.909 Unspecified asthma, uncomplicated; F12.10 Cannabis abuse, uncomplicated; F19.10 Other psychoactive substance abuse, uncomplicated; B17.10 Acute hepatitis C without hepatic coma; Z91.040 Latex allergy status; Z88.8 Allergy status to other drugs, medicaments and biological substances; Z88.2 Allergy status to sulfonamides; Z79.83 Long term (current) use of bisphosphonates; Z79.899 Other long term (current) drug therapy
CPT/HCPCS: 74177; 76705; 80048; 80076; 82150; 83605; 83690; 85025; 96374; 96375; 99284; J1885; J2405; Q9967

== ENCOUNTER 2025-03-27 13:34 | Inpatient (IN) | payer OTHER, SELFPAY ==
[~2025-03-27] VITALS: Ht 185.4 cm; Wt 68.0 kg
[~2025-03-27 13:34] MED LIST changes: +HYDR-3364 PO; -HYDR-4570 PO; +METH27TA16; -METH27TA5
[2025-03-27 14:02] LABS: PLATELET COUNT, AUTOMATED 142 10^3/uL (150-450)
[2025-03-27 14:40] LABS: ETHYL ALCOHOL (ETHANOL) < 0.003 % (0.000-0.010)
[2025-03-27 14:42] LABS: ALT/SGPT 145 U/L (7.0-40); AST/SGOT 63 U/L (<34); CALCIUM LEVEL 9.2 MG/DL (8.5-10.1); CARBON DIOXIDE LEVEL 25 MMOL/L (20-31); CHLORIDE LEVEL 107 MMOL/L (98-107); CREATININE FOR GFR 0.90 MG/DL (0.70-1.30); GLOMERULAR FILTRATION RATE > 90.0 (>60); POTASSIUM SERUM 4.5 MMOL/L (3.5-5.1); SALICYLATE LEVEL < 3.0 MG/DL (<30); SODIUM LEVEL 141 MMOL/L (136-145)
[2025-03-27 15:46] LABS: BARBITURATES URINE NEGATIVE (NEGATIVE); BENZODIAZEPINES URINE NEGATIVE (NEGATIVE); COCAINE METABOLITE URINE NEGATIVE (NEGATIVE)
[2025-03-27 15:47] LABS: METHADONE URINE NEGATIVE (NEGATIVE); OPIATES URINE NEGATIVE (NEGATIVE); PHENCYCLIDINE URINE NEGATIVE (NEGATIVE)
[2025-03-27 15:48] LABS: AMPHETAMINES LEVEL URINE POSITIVE (NEGATIVE); CANNABINOIDS URINE POSITIVE (NEGATIVE)
[2025-03-27] MEDS ORDERED: OLANZapine 5 MG TAB PO PRN (16:25)
[2025-03-27] MEDS ORDERED: MAALOX 30 ML SUSP *UDC PO PRN (16:25)
[2025-03-27] MEDS ORDERED: HOME MED LIST COMPLETE! XX SCH (16:55)
[2025-03-27] MEDS: NICOTINE 14 MG/24 HR TRANSDERMAL TD SCH (19:19)
[2025-03-27 23:42] VITALS: BP 120/79; TEMP 97.3; O2SAT 97
[2025-03-28] MEDS: traZODone 50 MG TAB PO PRN (00:08)
[2025-03-28] MEDS: IBUPROFEN 400 MG TAB PO PRN (00:08)
[2025-03-28] MEDS: LORazepam 1 MG TAB PO PRN (09:49)
[2025-03-28] MEDS: QUEtiapine FUMARATE 50MG TAB PO SCH (21:00)
[2025-03-29 06:17] VITALS: BP 126/66; TEMP 97.9; O2SAT 98
[2025-03-29 17:33] VITALS: BP 134/72; TEMP 98.3
[2025-03-30 06:23] VITALS: BP 128/66; TEMP 97.6; O2SAT 96
[2025-03-30] MEDS: ACETAMINOPHEN 325 MG TAB PO PRN (14:38)
[2025-03-30 15:42] VITALS: BP 116/74; TEMP 97.2; O2SAT 100
[2025-03-30] MEDS: MOM 30 ML SUSPENSION UDC PO PRN (20:49)
[2025-03-31 06:18] VITALS: BP 122/77; TEMP 97.1; O2SAT 99
[2025-03-31] MEDS ORDERED: ARIP1TAB4 PO (08:44)
[2025-03-31] MEDS ORDERED: ABIL1TAB13 PO (08:59)
== END 2025-03-31 12:39 | disposition home or self-care (01) | DRG 754 ==
LOC: M ED 13:34 → M ED INP 16:24 → M PSY 23:36
PROVIDERS: ADMIT Internal Medicine; ATTEND Internal Medicine
DX: F32.9 Major depressive disorder, single episode, unspecified (principal); E88.01 Alpha-1-antitrypsin deficiency; R45.851 Suicidal ideations; F12.90 Cannabis use, unspecified, uncomplicated; F15.90 Other stimulant use, unspecified, uncomplicated; F90.9 Attention-deficit hyperactivity disorder, unspecified type; F43.10 Post-traumatic stress disorder, unspecified; Z59.00 Homelessness unspecified; Z91.040 Latex allergy status; Z88.8 Allergy status to other drugs, medicaments and biological substances; J44.9 Chronic obstructive pulmonary disease, unspecified; B18.2 Chronic viral hepatitis C

== ENCOUNTER 2025-05-26 14:05 | Inpatient (IN) | payer MEDICAID, OTHER ==
[~2025-05-26] VITALS: Ht 185.4 cm; Wt 69.2 kg
[~2025-05-26 14:05] MED LIST changes: +ABIL1TAB13 PO; +ARIP1TAB4 PO
[2025-05-26 15:02] LABS: PLATELET COUNT, AUTOMATED 108 10^3/uL (150-450)
[2025-05-26 15:29] LABS: AMPHETAMINES LEVEL URINE NEGATIVE (NEGATIVE); BARBITURATES URINE NEGATIVE (NEGATIVE); BENZODIAZEPINES URINE NEGATIVE (NEGATIVE); COCAINE METABOLITE URINE NEGATIVE (NEGATIVE); METHADONE URINE NEGATIVE (NEGATIVE)
[2025-05-26 15:30] LABS: OPIATES URINE NEGATIVE (NEGATIVE); PHENCYCLIDINE URINE NEGATIVE (NEGATIVE)
[2025-05-26 15:31] LABS: CANNABINOIDS URINE POSITIVE (NEGATIVE); ETHYL ALCOHOL (ETHANOL) < 0.003 % (0.000-0.010)
[2025-05-26 15:33] LABS: SALICYLATE LEVEL < 3.0 MG/DL (<30)
[2025-05-26 15:34] LABS: ALT/SGPT 171 U/L (7.0-40); AST/SGOT 83 U/L (<34); CALCIUM LEVEL 8.9 MG/DL (8.5-10.1); CARBON DIOXIDE LEVEL 25 MMOL/L (20-31); CHLORIDE LEVEL 108 MMOL/L (98-107); CREATININE FOR GFR 1.03 MG/DL (0.70-1.30); GLOMERULAR FILTRATION RATE > 90.0 (>60); POTASSIUM SERUM 3.7 MMOL/L (3.5-5.1); SODIUM LEVEL 142 MMOL/L (136-145)
[2025-05-26] MEDS ORDERED: MAALOX 30 ML SUSP *UDC PO PRN (17:10)
[2025-05-26] MEDS ORDERED: MOM 30 ML SUSPENSION UDC PO PRN (17:10)
[2025-05-26] MEDS ORDERED: ACET-897 PO (20:15)
[2025-05-26] MEDS ORDERED: RA M10TA PO (20:15)
[2025-05-26] MEDS ORDERED: HOME MED LIST COMPLETE! XX SCH (20:20)
[2025-05-27 06:18] VITALS: BP 114/65; TEMP 97.8; O2SAT 99
[2025-05-27] MEDS: SERTRALINE HCL 50 MG TAB PO SCH (11:06)
[2025-05-27] MEDS: IBUPROFEN 400 MG TAB PO PRN (11:34)
[2025-05-27 15:46] VITALS: BP 130/78; TEMP 98.1; O2SAT 96
[2025-05-27] MEDS ORDERED: ALBUTEROL 90 MCG/ACT 8 GM HFA INHALER INH PRN (17:35)
[2025-05-27] MEDS: PRAZOSIN 1 MG CAP PO SCH (20:23)
[2025-05-28 06:20] VITALS: BP 131/73; TEMP 97; O2SAT 98
[2025-05-28] MEDS: ACETAMINOPHEN 325 MG TAB PO PRN (08:49)
[2025-05-28 15:26] VITALS: BP 127/71; TEMP 97.9; O2SAT 97
[2025-05-28] MEDS: CIPRODEX OTIC SUSP 7.5 ML AD SCH (20:37)
[2025-05-29 06:24] VITALS: BP 125/70; TEMP 98.1; O2SAT 100
[2025-05-29 18:31] VITALS: BP 128/65; TEMP 98.1; O2SAT 99
[2025-05-29] MEDS: traZODone 50 MG TAB PO PRN (20:31)
[2025-05-30 06:52] VITALS: BP 130/63; TEMP 97.9; O2SAT 96
[2025-05-30 16:08] VITALS: BP 119/64; TEMP 98.3; O2SAT 98
[2025-05-31 06:32] VITALS: BP 113/56; TEMP 98.1; O2SAT 98
[2025-05-31 16:36] VITALS: BP 106/57; TEMP 98.5; O2SAT 98
[2025-05-31 19:07] LABS: HCV RNA log10 7.06 Log IU/mL (NOT DETECTED)
[2025-05-31] MEDS ORDERED: SERT50TA29 PO (19:53)
[2025-05-31] MEDS ORDERED: TRAZ-252 PO (19:53)
[2025-05-31] MEDS ORDERED: PRAZ1CAP PO (19:53)
[2025-05-31] MEDS ORDERED: HYDR-3363 PO (19:53)
[2025-05-31 20:23] VITALS: BP 119/70
[2025-06-01 06:34] VITALS: BP 121/58; TEMP 97.4; O2SAT 98
== END 2025-06-01 12:30 | disposition home or self-care (01) | DRG 751 ==
LOC: M ED 14:05 → M ED INP 17:10 → M PSY 17:37
PROVIDERS: ADMIT General Practice; ATTEND General Practice
DX: F33.1 Major depressive disorder, recurrent, moderate (principal); E88.01 Alpha-1-antitrypsin deficiency; F43.10 Post-traumatic stress disorder, unspecified; R56.9 Unspecified convulsions; F12.90 Cannabis use, unspecified, uncomplicated; Z88.8 Allergy status to other drugs, medicaments and biological substances; Z91.040 Latex allergy status; Z79.899 Other long term (current) drug therapy; G43.909 Migraine, unspecified, not intractable, without status migrainosus; J44.9 Chronic obstructive pulmonary disease, unspecified; J45.909 Unspecified asthma, uncomplicated; K59.00 Constipation, unspecified; M19.90 Unspecified osteoarthritis, unspecified site; B18.2 Chronic viral hepatitis C; F90.9 Attention-deficit hyperactivity disorder, unspecified type; M54.59 Other low back pain; F41.9 Anxiety disorder, unspecified; R45.851 Suicidal ideations